=== PATIENT | female | born 1995 | race Caucasian/White ===

== ENCOUNTER 2019-02-06 20:29 | Emergency (ER) | payer OTHER ==
[~2019-02-06] VITALS: Ht 170.2 cm; Wt 63.5 kg
[2019-02-06 20:49] VITALS: Ht 170.2 cm; Wt 63.5 kg
[2019-02-06 22:21] VITALS: BP 140/99
== END 2019-02-06 22:21 | disposition home or self-care (01) ==
LOC: ED 20:29
DX: S16.1XXA Strain of muscle, fascia and tendon at neck level, initial encounter (principal); F41.9 Anxiety disorder, unspecified; V49.49XA Driver injured in collision with other motor vehicles in traffic accident, initial encounter; Y93.I9 Activity, other involving external motion; Y92.413 State road as the place of occurrence of the external cause; Y99.8 Other external cause status